=== PATIENT | female | born 1960 | race Caucasian/White ===

== ENCOUNTER → 2016-09-20 | Outpatient (CLI) | payer BC ==
[~2016-09-20] MED LIST: ACHD5005 PO; BISO1TAB8 PO; CPR500T PO; HYOS0.1217 PO; NAPR-243 PO; SERT50TA2 PO
--- NOTE | 2016-09-20 11:33 | Diagnostic Imaging Report ---
EXAMINATION: PA and lateral chest at 9:42 am. INDICATION: Cough There are no prior studies available for comparison. The heart size is within normal limits. The lungs are clear. There is no sign of failure, pneumonia or a pleural effusion to suggest an acute abnormality. There is a 6 MM dense nodule in the posterior aspect of the left infrahilar region. Most likely this is a granuloma. The mediastinum is not widened. The osseous structures are intact. IMPRESSION: 1. There is no evidence for an acute cardiopulmonary abnormality. 2. The small nodular density in the left infrahilar region is most likely a benign process such as a granuloma. If previous studies are available they would be helpful for comparison. Dictated by: Dictated on workstation # [id number]
--- OUTSIDE RECORDS SUMMARY | 2016-09-20 13:21 | XMS REPORT | Continuity of Care Document ---
Author Author [facility] Organization [facility] Address Unknown Phone Unavailable Care Team Providers Care Timber Supervisor Name Role Phone Cyndi Boland PCP [phone] Source Comments Some departments are not documenting in the electronic medical record. If you do not see the information that you expected, contact Release of Information in the Health Information Management department at [phone] for further assistance in locating additional records.[facility] Active Allergies and Adverse Reactions No Known Allergies Current Medications Prescription Sig. Disp. Refills Start End Date Status Date Mesalamine (LIALDA) 1.2 g Take 1.2 g by mouth Active TbEC Daily. sertraline (ZOLOFT) 100 Take 100 mg by mouth Active mg tablet Daily. bisoprolol-hydrochlorothi Take 1 Tab by mouth Active azide (ZIAC) 2.5-6.25 mg Daily. per tablet LEVONORGESTREL-ETH ESTRA Take 1 Tab by mouth Active (LEVLITE-28 PO) Daily. SIMETHICONE (GAS-X PO) Take by mouth As Needed. Active [id number] Take by mouth As Needed. Active (BEANO PO) Active Problems Not on file Social History Tobacco Use Types Packs/Day Years Used Date Never Smoker Alcohol Use Drinks/Week oz/Week Comments No Plan of Care Health Maintenance Due Date Last Done Comments Hepatitis C Screening 1958 Physical (Comprehensive) 1965 Exam Pertussis Vaccine 1969 Tetanus Vaccine 1975 Cervical Cancer Screening 1979 Breast Cancer Screening 1998 Colorectal Cancer 2008 Screening Influenza Vaccine 03/31/2016 Results from Last 3 Months Not on file
== END ==
LOC: RAD 09:15
PROVIDERS: ATTEND Internal Medicine
DX: R05 Cough (principal)
CPT/HCPCS: 71020

== ENCOUNTER → 2016-12-13 | Outpatient (CLI) | payer BC ==
--- NOTE | 2016-12-13 17:07 | Diagnostic Imaging Report ---
INDICATION: Followup in August with left-sided pulmonary nodule. FINDINGS: Frontal and lateral views of the chest demonstrate a couple of small nodules in the left perihilar region consistent with calcified granulomas. Heart size and vascularity are normal. There are no pleural effusions. IMPRESSION: There are a couple of small nodules in the left chest consistent with calcified granulomas. Dictated by: Dictated on workstation # [id number]
== END ==
LOC: RAD 16:29
PROVIDERS: ATTEND Internal Medicine
DX: R91.8 Other nonspecific abnormal finding of lung field (principal)
CPT/HCPCS: 71020

== ENCOUNTER → 2016-12-15 | Outpatient (CLI) | payer BC ==
--- NOTE | 2016-12-16 20:24 | Diagnostic Imaging Report ---
Bilateral screening mammogram. The current study was also evaluated with a Computer Aided Detection (CAD) system. INDICATION: Screening. No current complaints stated on the questionnaire. COMPARISON: 10/15/2015. FINDINGS: The breasts are composed of scattered fibroglandular densities. Intramammary lymph nodes are seen in the axillary tail of the breast bilaterally without change. Allowing for technique and positional differences, no suspicious change is seen. IMPRESSION: No significant change. ACR BI-RADS Category 2: Benign findings. Result letter will be mailed to the patient. Note: At least 10% of breast cancer is not imaged by mammography. Dictated on workstation # [id number]
== END ==
LOC: RAD 14:18
PROVIDERS: ATTEND Internal Medicine
DX: Z12.31 Encounter for screening mammogram for malignant neoplasm of breast (principal)
CPT/HCPCS: 77067

== ENCOUNTER → 2018-03-13 | Outpatient (CLI) | payer BC ==
--- NOTE | 2018-03-14 09:29 | Diagnostic Imaging Report ---
Indication: Routine screening. Comparison is made with prior study from 12/15/2016 and 10/15/2015. 2-D and 3-D bilateral screening mammography was performed with CAD. Scattered fibroglandular densities are identified bilaterally. The parenchymal pattern is stable. No mass or malignant appearing microcalcifications are seen. The axillae are unremarkable. Impression: BI-RADS category one No mammographic features suspicious for malignancy are identified. ACR BI-RADS Category 1: Negative. Result letter will be mailed to the patient. Note: At least 10% of breast cancer is not imaged by mammography. Dictated by: Dictated on workstation # [id number]
== END ==
LOC: RAD 15:40
PROVIDERS: ATTEND Obstetrics & Gynecology
DX: Z12.31 Encounter for screening mammogram for malignant neoplasm of breast (principal)
CPT/HCPCS: 77067

== ENCOUNTER → 2019-01-09 | Outpatient (CLI) | payer BC ==
[~2019-01-09] MED LIST changes: +LISI2.5T PO; +METF-397 PO
== END | disposition home or self-care (01) ==
LOC: PREOP 05:50
PROVIDERS: ATTEND Internal Medicine
DX: Z01.818 Encounter for other preprocedural examination (principal)

== ENCOUNTER 2019-01-11 08:16 | Day surgery (SDC) | payer BC ==
--- NOTE | 2019-01-08 20:55 | HISTORY AND PHYSICAL ---
DATE OF SERVICE: COLONOSCOPY HISTORY AND PHYSICAL HISTORY OF PRESENT ILLNESS: The patient is a 58-year-old white female referred by Dr. Boland for surveillance colonoscopy. She has a past history of colon polyps and family history is pertinent for father, who was diagnosed with colon cancer around the age of 66. She is not aware of any other family history for colon cancer or polyps. She reports that she has been feeling well. She has noted no bowel habit change. She does have some intermittent problems with constipation alternating with diarrhea with a history of irritable bowel, but there have been no changes in her bowel habits and no evidence for melena or bright red blood per rectum. She reports her weight has been stable and she denies night sweats, chills or fever. PAST MEDICAL HISTORY: Other than her irritable bowel, significant for hypertension and recent diagnosis of type 2 diabetes mellitus for which she is only taking a low dose metformin 500 mg daily. PAST SURGICAL HISTORY: Significant for greater than 10-year history of past cholecystectomy and inguinal hernia repair. SOCIAL HISTORY: She is employed, , with occasional alcohol use with no past smoking history. FAMILY HISTORY: As noted above. Her father also had a history of melanoma. Her mother had a history of heart disease diagnosed in her 60s. PHYSICAL EXAMINATION: GENERAL: Reveals a pleasant white female, appears to be in no acute distress. VITAL SIGNS: Blood pressure 122/78. HEENT: Unremarkable. She is a Mallampati class 2, pharyngeal configuration. NECK: Revealed no JVD, adenopathy or bruits. CHEST: Clear to auscultation. CARDIOVASCULAR: Reveals regular rate and rhythm without murmur, S3 or S4. ABDOMEN: Soft, supple without mass, organomegaly or tenderness. Bowel sounds positive. EXTREMITIES: Reveal no cyanosis, clubbing or edema. ASSESSMENT AND PLAN: The patient was set up for colonoscopy due to past history of colon polyps and family history for colon cancer on 01/11/2019. Prep instructions with Suprep kit were given. Prep was suboptimal last time, but in talking with her, it does not sound like she drank water with the prep. Discussed the importance of having two 16 ounce glasses of water after each of her split doses. Her past medical record was reviewed and questions were answered. Thank you for the referral of this pleasant lady. Job ID: [id number] DocumentID: [id number] Dictated Date: 01/03/2019 17:00:42 Pool Coordinator Date: 01/03/2019 17:43:07 Dictated By: PAVEL TEJEDA MD
[~2019-01-11] VITALS: Ht 170.2 cm; Wt 79.4 kg
[~2019-01-11 08:16] MED LIST changes: -LISI2.5T PO; -METF-397 PO
[2019-01-11] MEDS ORDERED: D5 LR IV SOLUTION 1,000 ML IV ONE (08:23)
[2019-01-11] MEDS ORDERED: D5 LR IV SOLUTION 1,000 ML IV STA (08:28)
[2019-01-11] MEDS ORDERED: LIDOCAINE JELLY 2% 6 ML SYRINGE MM PRN (08:30)
[2019-01-11] MEDS ORDERED: fentaNYL INJECTION 100 MCG/2 ML AMP IVP ONE (08:30)
[2019-01-11] MEDS ORDERED: MIDAZOLAM 2 MG/2 ML (VERSED) VIAL IVP ONE (08:30)
[2019-01-11] MEDS ORDERED: METF-397 PO (08:38)
[2019-01-11] MEDS ORDERED: LISI2.5T PO (08:38)
[2019-01-11 08:44] VITALS: BP 123/68
[2019-01-11] MEDS ORDERED: LACTATED RINGERS 1,000 ML IV ONE (09:38)
[2019-01-11] MEDS ORDERED: MIDAZOLAM 2 MG/2 ML (VERSED) VIAL ONE (09:47)
[2019-01-11] MEDS ORDERED: PROPOFOL INJECTION 50 ML IV ONE (09:47)
--- NOTE | 2019-01-11 09:54 | Pre-Op Note & Conscious Sedat ---
Pre-Operative Progress Note H&P Reviewed The H&P was reviewed, patient examined and no changes noted. Date H&P Reviewed: Jan 11, 2019 Time H&P Reviewed: 09:40 Conscious Sedation Pre-Proced ASA Score 2 For ASA 3 and 4: Consider anesthesia and medical clearance. Also, for patients with a history of failed moderate sedation consider anesthesia. Airway Lungs Heart ASA score ASA 1: a normal healthy patient ASA 2: a patient with a mild systemic disease (mid diabetes, controlled hypertension, obesity ASA 3: a patient with a severe systemic disease that limits activity (angina, COPD, prior Myocardial infarction) ASA 4: a patient with an incapacitating disease that is a constant threat to life (CHF, renal failure) ASA 5: a moribund patient not expected to survive 24 hrs. (ruptured aneurysm) ASA 6: a declared brain- patient whose organs are being harvested. For emergent operations, add the letter E after the classification Mallampati Classification Grade 3 Sedation Plan Analgesia, Amnesia, Plan communicated to team members, Discussed options with patient/fam, Discussed risks with patient/fam The patient is an appropriate candidate to undergo the planned procedure, sedation, and anesthesia. The patient immediately re-assessed prior to indication. PAVEL TEJEDA MD Jan 11, 2019 09:54
[2019-01-11] MEDS ORDERED: LIDOCAINE JELLY 2% 6 ML SYRINGE ONE (09:58)
[2019-01-11 11:00] VITALS: BP 121/67
[2019-01-11 11:30] VITALS: BP 103/55
[2019-01-11 11:40] VITALS: BP 103/55
--- NOTE | 2019-01-11 16:28 | OPERATIVE REPORT ---
DATE OF SERVICE: COLONOSCOPY SUMMARY INDICATION FOR THE PROCEDURE: Surveillance due to past history of colon polyps. The patient was placed in the left lateral decubitus position. Prior to undergoing colonoscopy, digital rectal evaluation was performed. Anal sphincter tone was normal. Perianal reflexes intact. A small anterior rectocele oriented toward the left was noted to digital inspection with no other abnormalities. The colonoscope was then inserted into the rectum and under direct visualization advanced to the cecum. The cecum was identified by identification of the ileocecal valve and cecal strap. Photographic documentation was obtained. Careful inspection was made as the colonoscope was withdrawn. Quality of prep was fair and improved from her last procedure. FINDINGS: There is no evidence for internal or external hemorrhoids and the rectum was unremarkable. A moderate number of small to medium size sigmoid diverticulum were present with haustral hypertrophy, but no evidence for diverticulitis. Present in the distal descending colon was a diminutive 3 mm sessile polyp. It was biopsied and ablated and submitted for histopathology. Similar polyps were removed from the proximal ascending colon and mid transverse colon. No evidence for diverticular disease was noted in these locations. The cecum of the colon was unremarkable. ASSESSMENT: 1. Three small polyps were removed via hot forceps with cauterization as per above. As long as there are no surprises on histopathology report, we will abdicate a screening interval of 5 years. 2. Moderate diverticular disease confined to the sigmoid colon was present without evidence for diverticulitis. The patient did have a small anterior rectocele oriented toward the patient's left on digital rectal exam. I thank you for the referral of this pleasant lady. Job ID: [id number] DocumentID: [id number] Dictated Date: 01/11/2019 11:26:21 Ar Manager Date: 01/11/2019 16:28:16 Dictated By: PAVEL TEJEDA MD [facility]ITAL[facility]yn[facility]
== END 2019-01-11 11:40 | disposition home or self-care (01) ==
LOC: ENDO 08:16
PROVIDERS: ATTEND Internal Medicine
DX: Z12.11 Encounter for screening for malignant neoplasm of colon (principal); D12.2 Benign neoplasm of ascending colon; D12.3 Benign neoplasm of transverse colon; D12.4 Benign neoplasm of descending colon; K57.30 Diverticulosis of large intestine without perforation or abscess without bleeding; Z80.0 Family history of malignant neoplasm of digestive organs; E11.9 Type 2 diabetes mellitus without complications; I10 Essential (primary) hypertension; Z79.84 Long term (current) use of oral hypoglycemic drugs; Z79.899 Other long term (current) drug therapy

== ENCOUNTER → 2020-12-29 | Outpatient (CLI) | payer OTHER ==
[~2020-12-29] MED LIST changes: +LISI2.5T PO; +METF-397 PO
--- NOTE | 2020-12-29 15:20 | Diagnostic Imaging Report ---
INDICATION: Routine screening. COMPARISON: 03/13/2018 and 12/15/2016. TECHNIQUE: 2D and 3D bilateral screening mammography was performed with CAD. FINDINGS: Scattered fibroglandular densities are identified bilaterally. Intraparenchymal lymph nodes in the axillary tails bilaterally appear stable. No spiculated mass or malignant appearing microcalcifications are seen. The axillae are unremarkable. IMPRESSION: No mammographic features suspicious for malignancy are identified. ACR BI-RADS Category 2: Benign findings. Result letter will be mailed to the patient. Note: At least 10% of breast cancer is not imaged by mammography. Dictated by: Dictated on workstation # [id number]
== END ==
LOC: RAD 10:15
PROVIDERS: ATTEND Internal Medicine
DX: Z12.31 Encounter for screening mammogram for malignant neoplasm of breast (principal)
CPT/HCPCS: 77063; 77067

== ENCOUNTER → 2022-04-27 | Outpatient (CLI) | payer OTHER ==
[~2022-04-27] MED LIST changes: -LISI2.5T PO; +LISI2.5T13 PO
--- NOTE | 2022-04-27 16:13 | Diagnostic Imaging Report ---
INDICATION: LEFT KNEE PAIN COMPARISON: None. FINDINGS: 3 views of the left knee joint demonstrate no acute fracture or dislocation. Mild to moderate suprapatellar joint effusion is noted. Mild osteoarthritic changes are also present. No focal osseous lesions are seen. The surrounding soft tissue structures are unremarkable. There are no radiopaque foreign bodies. IMPRESSION: 1. Mild to moderate suprapatellar joint effusion, but no evidence acute fracture or dislocation of the left knee. 2. Mild osteoarthritic changes. Dictated by: Dictated on workstation # [id number]
== END ==
LOC: RAD
PROVIDERS: ATTEND Internal Medicine
DX: M17.12 Unilateral primary osteoarthritis, left knee (principal)
CPT/HCPCS: 73562

== ENCOUNTER → 2023-04-14 | Outpatient (CLI) | payer MEDICARE, OTHER ==
--- NOTE | 2023-04-14 11:16 | Diagnostic Imaging Report ---
Indication: Routine screening. Comparison is made with prior mammograms from 12/29/2020 and 03/13/2018. 2-D and 3-D bilateral screening mammography was performed with CAD. Both breasts are heterogeneously dense, limiting the sensitivity of mammography. The parenchymal pattern is stable. No spiculated mass or malignant-appearing microcalcifications are seen. Axillae are unremarkable. IMPRESSION: BI-RADS Category 1 No mammographic features suspicious for malignancy are identified. ACR BI-RADS Category 1: Negative. Result letter will be mailed to the patient. Note: At least 10% of breast cancer is not imaged by mammography. Dictated by: Dictated on workstation # [id number]
== END ==
LOC: RAD 07:37
PROVIDERS: ATTEND Internal Medicine
DX: Z12.31 Encounter for screening mammogram for malignant neoplasm of breast (principal); E11.9 Type 2 diabetes mellitus without complications; I10 Essential (primary) hypertension; K58.9 Irritable bowel syndrome, unspecified; E78.2 Mixed hyperlipidemia
CPT/HCPCS: 77063; 77067